=== PATIENT | female | born 1930 | race Hispanic/Latino ===

== ENCOUNTER 2016-08-10 14:27 | Emergency (ER) | payer MEDICARE ==
--- NOTE | 2016-08-10 15:44 | PICIS ---
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 (14:31 KMOR) PATIENT: NAME: Shaina Lopez, AGE: 86, GENDER: female, : [id number], TIME OF GREET: WedAug 10, 2016 14:28, PREFERRED LANGUAGE: Swedish, ETHNICITY: or , ECODE BILLING MAP: [place], SSN: [id number], Zip Code: [address], KG WEIGHT: 60.78, PHONE: , , , PERSON ID: [id number], PAYMENT: [facility] Medicare, PCP: Kimmy PARDO MICHAEL. (14:31 KMOR) COMPLAINT: Fall. (14:31 KMOR) ADMISSION: URGENCY: 3 Urgent, ADMISSION SOURCE: Home, TRANSPORT: CAR, BED: ER -02. (14:31 KMOR) ASSESSMENT: Assessment: A&OX4. RR EVEN AND UNLABORED., Symptoms began 1.5 hours ago. (15:14 KMOR) PAIN: Patient complains of pain described as, aching, on a scale 0-10 patient rates pain as 5, Location BACK OF HEAD. (15:14 KMOR) SIRS SCORING: Heart Rate 55-109 (0), Temp range 96.8-101.1 (0), respiratory rate 12-24 (0), Mental Status altered: no (0), Infection or Suspected Infection: No. (15:14 KMOR) TRIAGE SCREENING: Patient denies suicidal ideation, Patient denies presence of domestic violence. (15:14 KMOR) LMP: LMP: Hysterectomy. (15:14 KMOR) PROVIDERS: TRIAGE NURSE: Samra Fowler RN. (14:31 KMOR) PREVIOUS VISIT ALLERGIES: No Known Drug Allergies. (14:31 KMOR) No Known Drug Allergies. (15:14 KMOR) KNOWN ALLERGIES No Known Drug Allergies CURRENT MEDICATIONS (15:24 KMOR) Unable to obtain VITAL SIGNS (14:32 KMOR) VITAL SIGNS: BP: 137/74, Pulse: 79, Resp: 18, Temp: 98.0 (Oral), O2 sat: 94 on Room Air, Time: 08/10/2016 14:32. NURSING ASSESSMENT: FOCUSED (15:30 KMOR) CONSTITUTIONAL: Patient arrives ambulatory, Gait steady, History obtained from patient, Patient appears comfortable, Patient cooperative, Patient alert, Oriented to person, place and time, Skin warm, Skin dry, Skin normal in color, Mucous membranes pink, Mucous membranes moist, Patient is well-groomed, Patient complains of Fall, Patient reports she fell this morning and hit head, reports patient has had falls due to feeling unsteady. Reports no loc. PAIN: aching pain, head, on a scale 0-10 patient rates pain as 8. NEURO: Focused neuro assessment findings include patient alert, &a-1R&a+25V*p+0X*t2719L*c202B*c15G*c2P*p-0X&a-25V&a+1R Name: Shaina Lopez : 1930 F86 MedRec: [id number] AcctNum: [id number] Prepared: WedAug 11, 2016 09:28 by Interface Page 1 of 6 pMD [facility] EMERGENCY RECORD cooperative, No facial droop noted, Speech coherent, no weakness, no numbness, No loss of consciousness. GCS: Eye opening: (4) - Spontaneous, Verbal: (5) - Oriented/conversive, Motor: (6) - Obeys commands/Spontaneous, GCS Total: 15. RESPIRATORY: Focused respiratory assessment findings include breath sounds clear. ABDOMEN: Focused abdominal assessment findings include abdomen soft, no complaint of nausea, no vomiting. GENITOURINARY FEMALE: Focused genitourinary assessment not applicable. MUSCULOSKELETAL: Focused musculoskeletal assessment findings include normal range of motion, radial pulse +3. LACERATION: Focused laceration assessment not applicable. NOTES: Patient tolerated procedure well. NURSING PROCEDURE: DISCHARGE NOTE (15:20 KMOR) DISCHARGE: Patient discharged to home, ambulating without assistance, family driving, accompanied by //partner, Summary of Care printed/ provided, Transition record given to patient, Discharge instructions given to patient, Simple or moderate discharge teaching performed, by DA Cabrales, Discharge instructions and follow up reviewed with patient. Pt ambulatory to discharge desk., Above person(s) verbalized understanding of discharge instructions and follow-up care. BELONGINGS: Belongings remain with patient, Valuables remain with patient. ORDER DETAILS Order Name: CT Brain WO Con, Status: Active, Time: 14:43 08/10/2016, User: JEVON, - Ordered for: DO [place] Matthew, - Entered by: DO [place] Matthew - [facility] Aug 10, 2016 14:43, - Quantity: 1. HPI FALL (14:46 MBRI) CHIEF COMPLAINT: Patient presents for evaluation of fall. HISTORIAN: History provided by patient's family. LOCATION: Symptoms are localized. QUALITY: Pain is dull in nature, described as aching. TIME COURSE: Sudden onset of symptoms, just prior to arrival, There has been no change in the patient's symptoms over time. SEVERITY: Maximum severity of symptoms mild, Currently symptoms are mild. ASSOCIATED WITH: No associated neck pain, No associated chest pain, No associated abdominal pain, No associated back pain, No associated clavicle pain, No associated shoulder pain, No associated elbow pain, No associated wrist pain, No associated hip pain, No associated knee pain, No associated ankle pain, No associated &a-1R&a+25V*p+0X*f4506D*c202B*c15G*c2P*p-0X&a-25V&a+1R Name: Shaina Lopez : 1930 F86 MedRec: [id number] AcctNum: [id number] Prepared: WedAug 11, 2016 09:28 by Interface Page 2 of 6 pMD [facility] EMERGENCY RECORD abrasion(s), Associated with contusion(s), to the scalp, No associated laceration(s), No associated deformity, No associated blurred vision, No associated inability to ambulate, No associated inability to bear weight, Associated with headache, constant, No associated loss of consciousness, No associated near syncope, No associated neurological symptoms prior to arrival, No associated numbness, No associated paresthesias, No associated shortness of breath, No associated syncope, No associated tingling, No associated vomiting. EXACERBATED BY: Patient's condition exacerbated by nothing. RELIEVED BY: Patient's condition relieved by nothing. RISK FACTORS: No risk factors for spinal injury, Risk factors for intracranial bleed, include age very old. ROS (14:46 MBRI) CONSTITUTIONAL: Negative constitutional review of systems, Historian denies chills, denies fever. EYES: Negative eye review of systems. ENT: Historian denies rhinorrhea, denies sore throat. CARDIOVASCULAR: Historian denies chest pain, denies dyspnea on exertion. RESPIRATORY: Historian denies cough, denies shortness of breath. GI: Negative gastrointestinal review of systems, Historian denies abdominal pain, denies diarrhea, denies nausea, denies vomiting. GENITOURINARY FEMALE: Historian denies dysuria, denies frequency, denies hematuria, denies urine output changes. MUSCULOSKELETAL: Historian denies back pain, denies deformity, reports fall, reports injury, denies neck pain. SKIN: Negative skin review of systems, Historian denies skin changes. NEUROLOGIC: Historian denies dizziness, denies focal weakness, denies gait changes, reports headache, denies mental status changes, denies paresthesias, denies seizures, denies sensory changes, denies vertigo. ENDOCRINE: Historian denies polydipsia, denies polyuria. HEMO/LYMPHATIC: Historian denies abnormal blood clotting, denies easy bruising. PAST MEDICAL HISTORY (15:14 KMOR) MEDICAL HISTORY: Flu vaccine up to date, Tetanus immunization up to date, Pneumococcal vaccine up to date, Past medical history includes history of hyperlipidemia, Past medical history includes history of hypertension. Past medical history includes history of hyperlipidemia, Past medical history includes history of hypertension. 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 Surgical history of orthopedic surgery, total knee. PSYCHIATRIC HISTORY: Notes: DEPRESSION. &a-1R&a+25V*p+0X*z6667F*c202B*c15G*c2P*p-0X&a-25V&a+1R Name: Shaina Lopez : 1930 F86 MedRec: [id number] AcctNum: [id number] Prepared: WedAug 11, 2016 09:28 by Interface Page 3 of 6 pMD [facility] EMERGENCY RECORD SOCIAL HISTORY: Patient denies alcohol use, Patient denies drug use, Patient has no smoking history. Patient denies alcohol use, Patient denies drug use, Patient has no smoking history. FAMILY HISTORY: Family istory is not significant. PHYSICAL EXAM (14:46 MBRI) CONSTITUTIONAL: Vital Signs Reviewed, Nursing notes reviewed. HEAD: Head exam included findings of, no Malloy's sign, No raccoon eyes, Contusion to left occipital, No abrasions, No lacerations, normocephalic. EYES: Eye exam included findings of eyelids normal to inspection, Pupils equally round and reactive to light, Extraocular muscles intact. ENT: Ear exam normal, external ear normal, tympanic membranes normal, Pharynx exam normal. NECK: Neck exam included findings of normal range of motion, Trachea midline, no tenderness, no abrasions, no contusions, no ecchymosis, Clinically cleared at this time. RESPIRATORY CHEST: Respiratory exam included findings of no respiratory distress, Breath sounds clear, No wheezing, No rales, No rhonchi. CARDIOVASCULAR: Cardiovascular exam included findings of heart rate regular rate and rhythm, Heart sounds normal, Carotids normal. ABDOMEN FEMALE: Abdominal exam included findings of abdomen nontender, Bowel sounds normal, no peritoneal signs, no rigidity, no guarding, no rebound. BACK: Back exam included findings of normal inspection, no tenderness. UPPER EXTREMITY: Upper extremity exam included findings of inspection normal, range of motion normal, Radial pulse normal, capillary refill less than 2 seconds, distal motor intact, distal sensory intact. LOWER EXTREMITY: Left pelvis exam normal, Right pelvis exam normal, Left hip exam normal, Right hip exam normal, Left thigh exam normal, Right thigh exam normal, Left knee exam normal, Right knee exam normal, Left lower leg exam normal, Right lower leg exam normal, Left ankle exam normal, Right ankle exam normal, Lower extremity exam included findings of inspection normal, femoral pulses normal, no cyanosis, no clubbing, no edema, no tenderness noted. NEURO: Neuro exam findings include patient oriented to person, place and time, Speech normal, no focal motor deficits. SKIN: Skin exam included findings of skin warm, dry, and normal in color. EVENTS TRANSFER: Triage to Emergency Emergency Room -02. (WedAug 10, 2016 14:31 KMOR) Removed from Emergency Emergency Room -02. (15:28 KMOR) RADIOLOGYINTERPRETATION (15:10 MBRI) &a-1R&a+25V*p+0X*d2820J*c202B*c15G*c2P*p-0X&a-25V&a+1R Name: Shaina Lopez : 1930 F86 MedRec: [id number] AcctNum: [id number] Prepared: WedAug 11, 2016 09:28 by Interface Page 4 of 6 pMD [facility] EMERGENCY RECORD HEAD: Head CT, without contrast shows, no acute ischemic stroke, no epidural hematoma, no subarachnoid hemorrhage, no subdural hematoma, no intra-cerebral hemorrhage, no intraventricular hemorrhage, no midline shift, no cerebral edema, Other findings: No acute process noted. Patient dose appear to have some small foci of lucency to the bones in the occipital regions that could represent metastatic lesions in the correct setting. Rec follow-up eval and possible repeat PET scan. SCIENTIFIC DIVER: Preliminary review of CT scans by, Radiologist. O2SAT INTERPRETATION (15:10 MBRI) O2SAT: Oxygen saturation interpretation: Normal. PROBLEM LIST No recorded problems DIAGNOSIS (15:13 MBRI) FINAL: PRIMARY: scalp hematoma, ADDITIONAL: Possible bone lesions in the occipital bones jessica - unk significance. DISPOSITION PATIENT: Disposition Type: Discharge, Disposition: *Discharge Home, Condition: Good. (15:13 MBRI) Patient left the department. (15:28 KMOR) INSTRUCTION (15:15 MBRI) DISCHARGE: CONTUSION SCALP NO WAKE UP, FALL PREVENTION. FOLLOWUP: Margie PARDO., [facility], [address] [place] [address] [address] [facility] [id number], , Follow up with Primary Care Physician in 7-10 days. SPECIAL: Please return for any further issues or concerns, we would be happy to see you. We hope you feel better soon. Follow-up with your PCP Tylenol or Advil for Pain. The CT scan showed some areas of irregular bone within the skull. These will need follow-up with your primary doctor to further assess. PRESCRIPTION No recorded prescriptions IMAGING (17:41 KMOR) *DISCHARGE INSTRUCTIONS RECEIPT: Image captured from scanner. *SUPPLY CHARGE SHEET: Image captured from scanner. ADMIN DIGITAL SIGNATURE: DA Fowler, Samra. (18:04 KMOR) DO [place] Matthew. (WedAug 11, 2016 09:21 MBRI) Solis: &a-1R&a+25V*p+0X*i2139W*c202B*c15G*c2P*p-0X&a-25V&a+1R Name: Shaina Lopez : 1930 86 MedRec: [id number] AcctNum: [id number] Prepared: WedAug 11, 2016 09:28 by Interface Page 5 of 6 pMD [facility] EMERGENCY RECORD KMOR=DA Fowler, Samra MBRI=DO [place] Matthew &a-1R&a+25V*p+0X*s4682A*c202B*c15G*c2P*p-0X&a-25V&a+1R Name: Shaina Lopez : 1930 86 MedRec: [id number] AcctNum: [id number] Prepared: WedAug 11, 2016 09:28 by Interface Page 6 of 6 pMD [facility] MEDICATION RECONCILIATION You were seen in the Emergency Department on: WedAug 10, 2016 KNOWN ALLERGIES No Known Drug Allergies HOME MEDICATIONS Unable to obtain Notes from the emergency department Reviewed with patient &a-1R&a+25V*p+0X*w9560Q*c202B*c15G*c2P*p-0X&a-25V&a+1R Name: Shaina Lopez : 1930 F86 MedRec: [id number] AcctNum: [id number] Prepared: WedAug 11, 2016 09:28 by Interface pMD MTDD
--- NOTE | 2016-08-10 15:47 | ERRECORD ---
[facility] EMERGENCY RECORD HPI FALL (14:46 MBRI) CHIEF COMPLAINT: Patient presents for evaluation of fall. HISTORIAN: History provided by patient's family. LOCATION: Symptoms are localized. QUALITY: Pain is dull in nature, described as aching. TIME COURSE: Sudden onset of symptoms, just prior to arrival, There has been no change in the patient's symptoms over time. SEVERITY: Maximum severity of symptoms mild, Currently symptoms are mild. ASSOCIATED WITH: No associated neck pain, No associated chest pain, No associated abdominal pain, No associated back pain, No associated clavicle pain, No associated shoulder pain, No associated elbow pain, No associated wrist pain, No associated hip pain, No associated knee pain, No associated ankle pain, No associated abrasion(s), Associated with contusion(s), to the scalp, No associated laceration(s), No associated deformity, No associated blurred vision, No associated inability to ambulate, No associated inability to bear weight, Associated with headache, constant, No associated loss of consciousness, No associated near syncope, No associated neurological symptoms prior to arrival, No associated numbness, No associated paresthesias, No associated shortness of breath, No associated syncope, No associated tingling, No associated vomiting. EXACERBATED BY: Patient's condition exacerbated by nothing. RELIEVED BY: Patient's condition relieved by nothing. RISK FACTORS: No risk factors for spinal injury, Risk factors for intracranial bleed, include age very old. ROS (14:46 MBRI) CONSTITUTIONAL: Negative constitutional review of systems, Historian denies chills, denies fever. EYES: Negative eye review of systems. ENT: Historian denies rhinorrhea, denies sore throat. CARDIOVASCULAR: Historian denies chest pain, denies dyspnea on exertion. RESPIRATORY: Historian denies cough, denies shortness of breath. GI: Negative gastrointestinal review of systems, Historian denies abdominal pain, denies diarrhea, denies nausea, denies vomiting. GENITOURINARY FEMALE: Historian denies dysuria, denies frequency, denies hematuria, denies urine output changes. MUSCULOSKELETAL: Historian denies back pain, denies deformity, reports fall, reports injury, denies neck pain. SKIN: Negative skin review of systems, Historian denies skin changes. NEUROLOGIC: Historian denies dizziness, denies focal weakness, denies gait changes, reports headache, denies mental status changes, denies paresthesias, denies seizures, denies sensory changes, denies vertigo. ENDOCRINE: Historian denies polydipsia, denies polyuria. &a-1R&a+25V*p+0X*k2567X*c202B*c15G*c2P*p-0X&a-25V&a+1R Name: Shaina Lopez : 1930 F86 MedRec: [id number] AcctNum: [id number] Prepared: WedAug 11, 2016 09:28 by Interface Page 1 of 3 pMD [facility] EMERGENCY RECORD HEMO/LYMPHATIC: Historian denies abnormal blood clotting, denies easy bruising. PAST MEDICAL HISTORY (15:14 KMOR) MEDICAL HISTORY: Flu vaccine up to date, Tetanus immunization up to date, Pneumococcal vaccine up to date, Past medical history includes history of hyperlipidemia, Past medical history includes history of hypertension. Past medical history includes history of hyperlipidemia, Past medical history includes history of hypertension. 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 Surgical history of orthopedic surgery, total knee. PSYCHIATRIC HISTORY: Notes: DEPRESSION. SOCIAL HISTORY: Patient denies alcohol use, Patient denies drug use, Patient has no smoking history. Patient denies alcohol use, Patient denies drug use, Patient has no smoking history. FAMILY HISTORY: Family istory is not significant. KNOWN ALLERGIES No Known Drug Allergies CURRENT MEDICATIONS (15:24 KMOR) Unable to obtain VITAL SIGNS (14:32 KMOR) VITAL SIGNS: BP: 137/74, Pulse: 79, Resp: 18, Temp: 98.0 (Oral), O2 sat: 94 on Room Air, Time: 08/10/2016 14:32. PHYSICAL EXAM (14:46 MBRI) CONSTITUTIONAL: Vital Signs Reviewed, Nursing notes reviewed. HEAD: Head exam included findings of, no Malloy's sign, No raccoon eyes, Contusion to left occipital, No abrasions, No lacerations, normocephalic. EYES: Eye exam included findings of eyelids normal to inspection, Pupils equally round and reactive to light, Extraocular muscles intact. ENT: Ear exam normal, external ear normal, tympanic membranes normal, Pharynx exam normal. NECK: Neck exam included findings of normal range of motion, Trachea midline, no tenderness, no abrasions, no contusions, no ecchymosis, Clinically cleared at this time. RESPIRATORY CHEST: Respiratory exam included findings of no respiratory distress, Breath sounds clear, No wheezing, No rales, No rhonchi. CARDIOVASCULAR: Cardiovascular exam included findings of heart rate regular rate and rhythm, Heart sounds normal, Carotids normal. ABDOMEN FEMALE: Abdominal exam included findings of abdomen nontender, Bowel sounds normal, no peritoneal signs, no rigidity, no guarding, no rebound. &a-1R&a+25V*p+0X*g4804L*c202B*c15G*c2P*p-0X&a-25V&a+1R Name: Shaina Lopez : 1930 F86 MedRec: [id number] AcctNum: [id number] Prepared: WedAug 11, 2016 09:28 by Interface Page 2 of 3 pMD [facility] EMERGENCY RECORD BACK: Back exam included findings of normal inspection, no tenderness. UPPER EXTREMITY: Upper extremity exam included findings of inspection normal, range of motion normal, Radial pulse normal, capillary refill less than 2 seconds, distal motor intact, distal sensory intact. LOWER EXTREMITY: Left pelvis exam normal, Right pelvis exam normal, Left hip exam normal, Right hip exam normal, Left thigh exam normal, Right thigh exam normal, Left knee exam normal, Right knee exam normal, Left lower leg exam normal, Right lower leg exam normal, Left ankle exam normal, Right ankle exam normal, Lower extremity exam included findings of inspection normal, femoral pulses normal, no cyanosis, no clubbing, no edema, no tenderness noted. NEURO: Neuro exam findings include patient oriented to person, place and time, Speech normal, no focal motor deficits. SKIN: Skin exam included findings of skin warm, dry, and normal in color. RADIOLOGYINTERPRETATION (15:10 MBRI) HEAD: Head CT, without contrast shows, no acute ischemic stroke, no epidural hematoma, no subarachnoid hemorrhage, no subdural hematoma, no intra-cerebral hemorrhage, no intraventricular hemorrhage, no midline shift, no cerebral edema, Other findings: No acute process noted. Patient dose appear to have some small foci of lucency to the bones in the occipital regions that could represent metastatic lesions in the correct setting. Rec follow-up eval and possible repeat PET scan. CHANNEL CEMENTER: Preliminary review of CT scans by, Radiologist. PROBLEM LIST No recorded problems DIAGNOSIS (15:13 MBRI) FINAL: PRIMARY: scalp hematoma, ADDITIONAL: Possible bone lesions in the occipital bones jessica - unk significance. PRESCRIPTION No recorded prescriptions DISPOSITION PATIENT: Disposition Type: Discharge, Disposition: *Discharge Home, Condition: Good. (15:13 MBRI) Patient left the department. (15:28 KMOR) Solis: KMOR=DA Fowler, Samra MBRI=DO [place] Matthew &a-1R&a+25V*p+0X*l5388P*c202B*c15G*c2P*p-0X&a-25V&a+1R Name: Shaina Lopez : 1930 F86 MedRec: [id number] AcctNum: [id number] Prepared: [place]orge Aug 11, 2016 09:28 by Interface Page 3 of 3 pMD MTDD
--- NOTE | 2016-08-10 18:35 | CT ---
CT OF THE BRAIN WITHOUT CONTRAST: Date: 08-10-16 History: A noncontrast CT was done following trauma. Comparison: I reviewed a PET scan report dated 01-21-08 that indicated the patient had known lung ma lignancy. FINDINGS: Today's exam shows no acute intracranial findings. There was no sign of parenchymal bleeding or ext raaxial hematoma. The ventricles are normal in size and show no shift. No intracranial mass or tracy ma was seen. At most, there may be a little hyperlucency in the deep white matter consistent with c hronic ischemic change, but it is very minimal for age. No fracture was seen in the skull, however, there are some curious areas of lucency in the occipital bone, mostly on the right but a few on the left. Given the clinical history, I cannot exclude meta static disease to bone. There is no air fluid level in the sphenoid sinus and the mastoid air cells are clear. IMPRESSION: 1. No acute intracranial findings. 2. Lytic areas in the occipital bone as described above. I cannot exclude metastatic disease. POS: HOME
== END 2016-08-10 15:20 | disposition home or self-care (01) ==
LOC: BURERS 14:27
DX: S00.03XA Contusion of scalp, initial encounter (principal); I10 Essential (primary) hypertension; E78.5 Hyperlipidemia, unspecified; F32.9 Major depressive disorder, single episode, unspecified; Z96.651 Presence of right artificial knee joint; W19.XXXA Unspecified fall, initial encounter
CPT/HCPCS: 70450